=== PATIENT | male | born 1980 | race Caucasian/White ===

== ENCOUNTER 2020-05-27 14:53 | Emergency (ER) | payer OTHER ==
[~2020-05-27] VITALS: Ht 167.6 cm; Wt 79.4 kg
[2020-05-27 15:15] VITALS: BP 125/62; Ht 167.6 cm; Wt 79.4 kg
== END 2020-05-27 19:40 | disposition left against medical advice (07) ==
LOC: ED 14:53
DX: S60.312A Abrasion of left thumb, initial encounter (principal); Z13.9 Encounter for screening, unspecified; X58.XXXA Exposure to other specified factors, initial encounter; Y93.89 Activity, other specified; Y92.89 Other specified places as the place of occurrence of the external cause; Y99.8 Other external cause status